=== PATIENT | male | born 1970 | race Caucasian/White ===

== ENCOUNTER → 2023-02-07 | Outpatient (CLI) | payer BC ==
[~2023-02-07] MED LIST: NAPR-243 PO
--- NOTE | 2023-02-07 11:37 | Diagnostic Imaging Report ---
MRI KNEE RT WO TECHNIQUE: Multiplanar, multisequence MR imaging of the right knee was performed without contrast. COMPARISON: None available. INDICATION: Right knee pain. FINDINGS: MENISCI Medial meniscus: Complex tear involving the body and posterior horn of the medial meniscus includes incomplete radial free edge tearing as well as a horizontal cleavage tear propagating into the posterior horn. Lateral meniscus: Degenerative tear in the anterior horn of the lateral meniscus. LIGAMENTS ACL: Intact. PCL: Intact. MCL: Intact. LCL: The lateral collateral ligamentous complex is intact. EXTENSOR MECHANISM The extensor mechanism is intact. CARTILAGE Medial compartment: Multiple sites of full-thickness articular cartilage loss are present in the central posterior weight-bearing aspect of the medial femoral condyle. Posterior aspect of the medial tibial plateau also has full-thickness chondral fissuring. Lateral compartment: Partial thickness chondral fissuring in the central weightbearing aspect of the lateral compartment. Patellofemoral compartment: Full-thickness articular cartilage fissuring is present at the central trochlear groove. Lateral patellar facet also has partial-thickness chondromalacia BONE No fracture, stress fracture or osteonecrosis. SOFT TISSUE No knee joint effusion. There is a small mildly complicated Mena's cyst. IMPRESSION: 1. Complex tear in the body and posterior horn of the medial meniscus. 2. Degenerative tearing in the anterior horn of lateral meniscus. 3. 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 Dictated by: Dictated on workstation # [id number]
== END ==
LOC: RAD 08:12
PROVIDERS: ATTEND Nurse Practitioner Family
DX: S83.232A Complex tear of medial meniscus, current injury, left knee, initial encounter (principal); M17.11 Unilateral primary osteoarthritis, right knee
CPT/HCPCS: 73721